=== PATIENT | male | born 1985 | race Caucasian/White ===

== ENCOUNTER 2017-02-08 17:11 | Emergency (ER) | payer BC ==
[2017-02-08] MEDS ORDERED: Ondansetron 4 MG/2 ML SDV IVPUSH ONE (17:30)
[2017-02-08] MEDS ORDERED: Sodium Chloride 0.9% 1,000 ML IV ONE (17:30)
[2017-02-08] MEDS ORDERED: Ketorolac 30 MG/ML SDV IVPUSH ONE (17:31)
[2017-02-08 18:20] LABS: CHLORIDE,CL 105 mmol/L (98-110); SODIUM,NA 141 mmol/L (136-146)
[2017-02-08] MEDS ORDERED: cefTRIAXone 2 GM in Premix Bag 1 BAG IV ONE (18:48)
[2017-02-08] MEDS ORDERED: Morphine 4 MG/ML Syringe IVPUSH ONE (18:49)
--- NOTE | 2017-02-08 19:03 | EDM.PDOC ---
ED HPI GENERAL MEDICAL PROBLEM - General Chief Complaint: General Stated Complaint: LIGHTHEADED/DIZZY/WEAK/VOMITING Time Seen by Provider: 02/08/17 18:40 Source of Information: Reports: Patient History Limitations: Reports: No Limitations - History of Present Illness INITIAL COMMENTS - FREE TEXT/NARRATIVE: History of present illness: [31-year-old male presents with complaints of recent dental work that has now left him with a swollen jaw nausea, vomiting, and fever.] Review of systems: As per history of present illness and below otherwise all systems reviewed and negative. Past medical history: As per history of present illness and as reviewed below otherwise noncontributory. Surgical history: As per history of present illness and as reviewed below otherwise noncontributory. Social history: No reported history of drug or alcohol abuse. Family history: As per history of present illness and as reviewed below otherwise noncontributory. Physical exam: HEENT: Atraumatic, left-sided face slightly swollen more pronounced in the left jaw in the area of 19 pupils reactive, negative for conjunctival pallor or scleral icterus, mucous membranes moist, throat clear, neck supple, nontender, trachea midline. Lungs: Clear to auscultation, breath sounds equal bilaterally, chest nontender. Heart: S1S2, regular, negative for clicks, rubs, or JVD. Abdomen: Soft, nondistended, nontender. Negative for masses or hepatosplenomegaly. Negative for costovertebral tenderness. Pelvis: Stable nontender. Genitourinary: Deferred. Rectal: Deferred. Extremities: Atraumatic, negative for cords or calf pain. Neurovascular unremarkable. Neuro: Awake, alert, oriented. Cranial nerves II through XII unremarkable. Cerebellum unremarkable. Motor and sensory unremarkable throughout. Exam nonfocal. Safe for dental swelling and pain as noted above patient is in obvious discomfort but without any vomiting at present Diagnostics: [CBC, CMP] Therapeutics: [Zofran, Toradol, morphine] Impression: [Dental abscess] Plan: [Current antibiotics, add antiemetics] Definitive disposition and diagnosis as appropriate pending reevaluation and review of above. left jaw Pain Score (Numeric/FACES): 6 - Related Data Allergies Allergy/AdvReac Type Severity Reaction Status Date / Time No Known Allergies Allergy Verified 02/08/17 17:30 Home Meds: Home Meds Penicillin V Potassium 0 mg PO TID 02/08/17 [History] Past Medical History - Past Health History Medical/Surgical History: Denies Medical/Surgical History HEENT History: Reports: None Gastrointestinal History: Reports: None Genitourinary History: Reports: Renal Calculus Social & Family History - Family History Family Medical History: Noncontributory - Tobacco Use Smoking Status *Q: Current Every Day Smoker Years of Tobacco use: 3 Packs/Tins Daily: 1 - Caffeine Use Caffeine Use: Reports: Soda - Recreational Drug Use Recreational Drug Use: No ED ROS GENERAL - Review of Systems Review Of Systems: See Below (See history of present illness) ED EXAM, GENERAL - Physical Exam Exam: See Below (See history of present illness) Course - Vital Signs Last Recorded V/S: Last Vital Signs Temp 36.3 C 02/08/17 17:31 Pulse 68 02/08/17 17:31 Resp 16 02/08/17 17:31 BP 137/80 02/08/17 17:31 Pulse Ox 97 02/08/17 17:31 - Orders/Labs/Meds Orders: Active Orders 24 hr Category Date Time Status cefTRIAXone [Rocephin in Dextrose,Iso-Osm 2 GM/50 ML] 2 Med 02/08/17 18:48 Ordered gm Premix Bag 1 bag IV ONETIME Medication Orders Ceftriaxone Sodium/Dextrose 2 (gm/ Premix) 50 mls @ 100 mls/hr IV ONETIME ONE Stop: 02/08/17 19:17 Labs: Laboratory Tests 02/08/17 02/08/17 Range/Units 17:41 17:41 WBC 8.16 (4.0-11.0) K/uL RBC 4.93 (4.50-5.90) M/uL Hgb 15.2 (13.0-17.0) g/dL Hct 44.3 (38.0-50.0) % MCV 89.9 (80.0-98.0) fL MCH 30.8 (27.0-32.0) pg MCHC 34.3 (31.0-37.0) g/dL RDW Std Deviation 42.5 (28.0-62.0) fl RDW Coeff of Nancy 13 (11.0-15.0) % Plt Count 221 (150-400) K/uL MPV 11.10 (7.40-12.00) fL Neut % (Auto) 53.5 (48.0-80.0) % Lymph % (Auto) 35.4 (16.0-40.0) % Kay % (Auto) 8.8 (0.0-15.0) % Eos % (Auto) 1.8 (0.0-7.0) % Baso % (Auto) 0.5 (0.0-1.5) % Neut # (Auto) 4.4 (1.4-5.7) K/uL Lymph # (Auto) 2.9 H (0.6-2.4) K/uL Kay # (Auto) 0.7 (0.0-0.8) K/uL Eos # (Auto) 0.2 (0.0-0.7) K/uL Baso # (Auto) 0.0 (0.0-0.1) K/uL Nucleated RBC % 0.0 /100WBC Nucleated RBCs # 0 K/uL Sodium 141 (136-146) mmol/L Potassium 3.7 (3.5-5.1) mmol/L Chloride 105 (98-110) mmol/L Carbon Dioxide 27 (21-31) mmol/L BUN 9 (6.0-23.0) mg/dL Creatinine 1.1 (0.6-1.5) mg/dL Est Cr Clr Drug Dosing 102.68 mL/min Estimated GFR (MDRD) > 60.0 ml/min Glucose 99 (60-110) mg/dL Calcium 8.8 (8.8-10.8) mg/dL Total Bilirubin 0.4 (0.1-1.5) mg/dL AST 21 (5-40) IU/L ALT 19 (8-54) IU/L Alkaline Phosphatase 106 (40-150) Total Protein 7.1 (6.0-8.0) g/dL Albumin 4.2 (3.5-5.0) g/dL Globulin 2.9 (2.0-3.5) g/dL Albumin/Globulin Ratio 1.4 (1.3-2.8) Meds: Medications Generic Name Dose Route Start Last Admin Trade Name Freq PRN Reason Stop Dose Admin Ceftriaxone Sodium/Dextrose 2 50 mls @ 100 mls/hr 02/08/17 18:48 gm/ Premix IV 02/08/17 19:17 ONETIME ONE Discontinued Medications Generic Name Dose Route Start Last Admin Trade Name Kaykay PRN Reason Stop Dose Admin Sodium Chloride 1,000 mls @ 999 mls/hr 02/08/17 17:30 02/08/17 17:49 Normal Saline IV 02/08/17 18:30 999 mls/hr STAT ONE Administration Ketorolac Tromethamine 30 mg 02/08/17 17:31 02/08/17 17:53 Toradol IVPUSH 02/08/17 17:32 30 mg ONETIME ONE Administration Morphine Sulfate 4 mg 02/08/17 18:49 Morphine IVPUSH 02/08/17 18:50 ONETIME ONE Ondansetron HCl 8 mg 02/08/17 17:30 02/08/17 17:51 Zofran IVPUSH 02/08/17 17:31 8 mg ONETIME ONE Administration Departure - Departure Time of Disposition: 19:03 Disposition: Home, Self-Care 01 Condition: Good Clinical Impression: Dental abscess - Discharge Information Forms: ED Department Discharge Additional Instructions: The following information is given to patients seen in the emergency department who are being discharged to home. This information is to outline your options for follow-up care. We provide all patients seen in our emergency department with a follow-up referral. The need for follow-up, as well as the timing and circumstances, are variable depending upon the specifics of your emergency department visit. If you don't have a primary care physician on staff, we will provide you with a referral. We always advise you to contact your personal physician following an emergency department visit to inform them of the circumstance of the visit and for follow-up with them and/or the need for any referrals to a consulting specialist. The emergency department will also refer you to a specialist when appropriate. This referral assures that you have the opportunity for follow-up care with a specialist. All of these measure are taken in an effort to provide you with optimal care, which includes your follow-up. Under all circumstances we always encourage you to contact your private physician who remains a resource for coordinating your care. When calling for follow-up care, please make the office aware that this follow-up is from your recent emergency room visit. If for any reason you are refused follow-up, please contact the [facility] Emergency Department at and asked to speak to the emergency department charge nurse. Take medication as directed Follow-up with dentist KENYETTA Return to ER as needed as discussed - My Orders Last 24 Hours: My Active Orders 02/08/17 18:48 cefTRIAXone [Rocephin in Dextrose,Iso-Osm 2 GM/50 ML] 2 gm Premix Bag 1 bag IV ONETIME - Assessment/Plan Last 24 Hours: My Active Orders 02/08/17 18:48 cefTRIAXone [Rocephin in Dextrose,Iso-Osm 2 GM/50 ML] 2 gm Premix Bag 1 bag IV ONETIME
[2017-02-08 22:09] VITALS: BP 127/78
== END 2017-02-08 19:41 | disposition home or self-care (01) ==
LOC: MW.ED 17:11
DX: K04.7 Periapical abscess without sinus (principal); F17.210 Nicotine dependence, cigarettes, uncomplicated; Z87.442 Personal history of urinary calculi
CPT/HCPCS: 80053; 85025; 96361; 96365; 96375; 99284; J0696; J1885; J2270; J2405; J7040; 99283

== ENCOUNTER 2017-06-01 09:42 | Emergency (ER) | payer BC ==
[2017-06-01] MEDS ORDERED: Ketorolac 60 MG/2 ML SDV IM ONE (09:57)
--- NOTE | 2017-06-01 09:57 | EDM.PDOC ---
ED HPI GENERAL MEDICAL PROBLEM - General Chief Complaint: Chest Pain Stated Complaint: CHEST PAIN FROM FALL Time Seen by Provider: 06/01/17 09:51 - History of Present Illness INITIAL COMMENTS - FREE TEXT/NARRATIVE: HISTORY AND PHYSICAL: History of present illness: The patient is a 31-year-old healthy male who presents with complaints of left anterior chest wall pain in the rib area after he sustained a fall 3 days ago. Patient says that on Tuesday he tripped over some laundry and impacted his left anterior chest wall and had immediate pain but did not pass out or black out. Since that time he has had persistent pain but it seems to got worse today. He' s had no abdominal pain and only feels short of breath because of the discomfort. He's not had any other chest pain head or neck pain and is not taking anything for pain. Review of systems: As per history of present illness and below otherwise all systems reviewed and negative. Past medical history: As per history of present illness and as reviewed below otherwise noncontributory. Surgical history: As per history of present illness and as reviewed below otherwise noncontributory. Social history: No reported history of drug or alcohol abuse. Family history: As per history of present illness and as reviewed below otherwise noncontributory. Physical exam: Gen.: Well-developed well-nourished man who is nontoxic and speaking clearly and easily in the ED without breathlessness. Vital signs of the note by me HEENT: Atraumatic, normocephalic, there is no evidence of any facial swelling or defects negative for conjunctival pallor or scleral icterus, mucous membranes moist, throat clear, neck supple, nontender, trachea midline. Her are no midline step-offs tenderness defects of the cervical spine Lungs: Clear to auscultation, breath sounds equal bilaterally, chest wall anterior left with reproducible tenderness at the middle and lower rib cage without crepitus deformities ecchymosis or erythema. Heart: S1S2, regular rate and rhythm no overt murmurs. Abdomen: Soft, nondistended, nontender. More particularly there is no left upper quadrant tenderness rebound or guarding and bowel sounds are normoactive Pelvis: Stable nontender. Genitourinary: Deferred. Rectal: Deferred. Extremities: Atraumatic, negative for cords or calf pain. Neurovascular unremarkable. Neuro: Awake, alert, oriented. Cranial nerves II through XII unremarkable. Cerebellum unremarkable. Motor and sensory unremarkable throughout. Exam nonfocal. Diagnostics: Left ribs with chest x-ray Therapeutics: Toradol Impression: Left chest wall contusion status post fall Definitive disposition and diagnosis as appropriate pending reevaluation and review of above. left chest Pain Score (Numeric/FACES): 7 - Related Data Allergies Allergy/AdvReac Type Severity Reaction Status Date / Time No Known Allergies Allergy Verified 06/01/17 09:58 Home Meds: Home Meds . [No Known Home Meds] 06/01/17 [History] Past Medical History - Past Health History Medical/Surgical History: Denies Medical/Surgical History HEENT History: Reports: None Gastrointestinal History: Reports: None Genitourinary History: Reports: Renal Calculus Social & Family History - Family History Family Medical History: Noncontributory - Tobacco Use Smoking Status *Q: Current Every Day Smoker Years of Tobacco use: 3 Packs/Tins Daily: 1 - Caffeine Use Caffeine Use: Reports: Soda - Recreational Drug Use Recreational Drug Use: No ED ROS GENERAL - Review of Systems Review Of Systems: ROS reveals no pertinent complaints other than HPI. ED EXAM, GENERAL - Physical Exam Exam: See Below (See dictation) Course - Vital Signs Last Recorded V/S: Last Vital Signs Temp 36.3 C 06/01/17 09:42 Pulse 89 06/01/17 09:42 Resp 18 06/01/17 09:42 BP 129/77 06/01/17 09:42 Pulse Ox 96 06/01/17 09:42 - Orders/Labs/Meds Meds: Medications Discontinued Medications Generic Name Dose Route Start Last Admin Trade Name Kaykay PRN Reason Stop Dose Admin Ketorolac Tromethamine 60 mg 06/01/17 09:57 06/01/17 10:14 Toradol IM 06/01/17 09:58 60 mg ONETIME ONE Administration Departure - Departure Time of Disposition: 10:29 Disposition: Home, Self-Care 01 Condition: Good Clinical Impression: Contusion of left chest wall Qualifiers: Encounter type: initial encounter Qualified Code(s): S20.212A - Contusion of left front wall of thorax, initial encounter Fall Qualifiers: Encounter type: initial encounter Qualified Code(s): W19.XXXA - Unspecified fall, initial encounter - Discharge Information Referrals: PCP,None [Primary Care Provider] - Forms: ED Department Discharge Additional Instructions: The following information is given to patients seen in the emergency department who are being discharged to home. This information is to outline your options for follow-up care. We provide all patients seen in our emergency department with a follow-up referral. The need for follow-up, as well as the timing and circumstances, are variable depending upon the specifics of your emergency department visit. If you don't have a primary care physician on staff, we will provide you with a referral. We always advise you to contact your personal physician following an emergency department visit to inform them of the circumstance of the visit and for follow-up with them and/or the need for any referrals to a consulting specialist. The emergency department will also refer you to a specialist when appropriate. This referral assures that you have the opportunity for followup care with a specialist. All of these measure are taken in an effort to provide you with optimal care, which includes your followup. Under all circumstances we always encourage you to contact your private physician who remains a resource for coordinating your care. When calling for followup care, please make the office aware that this follow-up is from your recent emergency room visit. If for any reason you are refused follow-up, please contact the [facility] emergency department at and ask to speak to the emergency department charge nurse. [facility] Primary care- Internal Medicine and Family [address] [address] Plan ice to areas of discomfort or pain and swelling and use [id number] Tylenol or ibuprofen during the day. Please use the [facility] only at sleep times. These call and follow-up with one of our clinic providers for reevaluation and further care and return to the ER as needed and as discussed.
--- NOTE | 2017-06-01 10:26 | CR ---
EXAMINATION: PA chest and left ribs HISTORY: Fall. FINDINGS: The trachea is midline. The cardiomediastinal silhouette is within normal limits. No pulmonary infilt rates, effusions or pneumothorax. Osseous structures appear unremarkable. No displaced rib fracture identified. IMPRESSION: No acute cardiopulmonary process.
[2017-06-01 10:44] VITALS: BP 120/70
== END 2017-06-01 10:40 | disposition home or self-care (01) ==
LOC: MW.ED 09:42
DX: S20.212A Contusion of left front wall of thorax, initial encounter (principal); F17.210 Nicotine dependence, cigarettes, uncomplicated; Z87.442 Personal history of urinary calculi; W01.0XXA Fall on same level from slipping, tripping and stumbling without subsequent striking against object, initial encounter
CPT/HCPCS: 71101; 96372; 99283; J1885

== ENCOUNTER 2017-08-27 18:38 | Emergency (ER) | payer BC ==
[2017-08-27 18:48] VITALS: BP 141/90
--- NOTE | 2017-08-27 19:11 | EDM.PDOC ---
ED HPI GENERAL MEDICAL PROBLEM - General Chief Complaint: Lower Extremity Injury/Pain Stated Complaint: PAIN/SWOLLEN FEET Time Seen by Provider: 08/27/17 19:06 Source of Information: Reports: Patient History Limitations: Reports: No Limitations - History of Present Illness INITIAL COMMENTS - FREE TEXT/NARRATIVE: History of present illness: [31-year-old male comes in complaining of bilateral foot pain. Patient indicates that he unwilling we exposed himself to frostbite. Patient indicates while his feet are visually improved from the prior 48 hours they're now significantly poor more painful.] Review of systems: As per history of present illness and below otherwise all systems reviewed and negative. Past medical history: As per history of present illness and as reviewed below otherwise noncontributory. Surgical history: As per history of present illness and as reviewed below otherwise noncontributory. Social history: No reported history of drug or alcohol abuse. Family history: As per history of present illness and as reviewed below otherwise noncontributory. Physical exam: HEENT: Atraumatic, normocephalic, pupils reactive, negative for conjunctival pallor or scleral icterus, mucous membranes moist, throat clear, neck supple, nontender, trachea midline. Lungs: Clear to auscultation, breath sounds equal bilaterally, chest nontender. Heart: S1S2, regular, negative for clicks, rubs, or JVD. Abdomen: Soft, nondistended, nontender. Negative for masses or hepatosplenomegaly. Negative for costovertebral tenderness. Pelvis: Stable nontender. Genitourinary: Deferred. Rectal: Deferred. Extremities: Atraumatic, negative for cords or calf pain. Neurovascular unremarkable. Neuro: Awake, alert, oriented. Cranial nerves II through XII unremarkable. Cerebellum unremarkable. Motor and sensory unremarkable throughout. Exam nonfocal. Bilateral plantar aspect of both feet with some nonblanching skin. Consistent with either a low-grade frostbite and or callus formation Diagnostics: [] Therapeutics: [] Impression: [Neuropathic foot pain] Plan: [Gabapentin follow-up with primary care] Definitive disposition and diagnosis as appropriate pending reevaluation and review of above. Bilateral Feet Pain Score (Numeric/FACES): 5 - Related Data Allergies Allergy/AdvReac Type Severity Reaction Status Date / Time shellfish derived Allergy Anaphylactic Verified 08/27/17 18:45 Shock Home Meds: Home Meds . [No Known Home Meds] 06/01/17 [History] Past Medical History - Past Health History Medical/Surgical History: Denies Medical/Surgical History HEENT History: Reports: None Gastrointestinal History: Reports: None Genitourinary History: Reports: Renal Calculus Social & Family History - Family History Family Medical History: Noncontributory - Tobacco Use Smoking Status *Q: Current Every Day Smoker Years of Tobacco use: 1 Packs/Tins Daily: 0.2 - Caffeine Use Caffeine Use: Reports: Energy Drinks, Soda, Tea - Recreational Drug Use Recreational Drug Use: No Review of Systems - Review of Systems Review Of Systems: See Below (See history of present illness) ED EXAM, GENERAL - Physical Exam Exam: See Below (See history of present illness) Course - Vital Signs Last Recorded V/S: Last Vital Signs Temp 36.7 C 08/27/17 18:46 Pulse 89 08/27/17 18:46 Resp 16 08/27/17 18:46 BP 141/90 H 08/27/17 18:46 Pulse Ox 97 08/27/17 18:46 Departure - Departure Time of Disposition: 19:08 Disposition: Home, Self-Care 01 Condition: Good Clinical Impression: Neuropathic pain - Discharge Information Referrals: PCP,None [Primary Care Provider] - Additional Instructions: The following information is given to patients seen in the emergency department who are being discharged to home. This information is to outline your options for follow-up care. We provide all patients seen in our emergency department with a follow-up referral. The need for follow-up, as well as the timing and circumstances, are variable depending upon the specifics of your emergency department visit. If you don't have a primary care physician on staff, we will provide you with a referral. We always advise you to contact your personal physician following an emergency department visit to inform them of the circumstance of the visit and for follow-up with them and/or the need for any referrals to a consulting specialist. The emergency department will also refer you to a specialist when appropriate. This referral assures that you have the opportunity for follow-up care with a specialist. All of these measure are taken in an effort to provide you with optimal care, which includes your follow-up. Under all circumstances we always encourage you to contact your private physician who remains a resource for coordinating your care. When calling for follow-up care, please make the office aware that this follow-up is from your recent emergency room visit. If for any reason you are refused follow-up, please contact the [facility] Emergency Department at and asked to speak to the emergency department charge nurse. Observe your feet for any potential early signs of infection You're being giving a pain medicine that is specifically for nerve pain which is consistent with any burning type injury be at from cold and/or chemicals Follow up with your primary care provider in 3-5 days Return to ED as needed as discussed
== END 2017-08-27 19:33 | disposition home or self-care (01) ==
LOC: MW.ED 18:38
DX: M79.2 Neuralgia and neuritis, unspecified (principal); F17.210 Nicotine dependence, cigarettes, uncomplicated; Z91.013 Allergy to seafood
CPT/HCPCS: 99283

== ENCOUNTER 2017-12-07 12:04 | Emergency (ER) | payer BC ==
[2017-12-07 12:37] VITALS: BP 125/77
--- NOTE | 2017-12-07 12:40 | EDM.PDOC ---
ED HPI GENERAL MEDICAL PROBLEM - General Chief Complaint: Abdominal Pain Stated Complaint: ABDOMINAL PAIN Time Seen by Provider: 12/07/17 12:05 Source of Information: Reports: Patient History Limitations: Reports: No Limitations - History of Present Illness INITIAL COMMENTS - FREE TEXT/NARRATIVE: HISTORY AND PHYSICAL: History of present illness: Patient is a 32-year-old male who presents to the emergency room today with complaints of groin and testicular pain for several days. He states that he has had some difficulty starting his stream and has some right flank discomfort as well. He denies any fever, chills or chest pain or shortness of breath. He denies any abdominal pain, nausea, vomiting, diarrhea/constipation. Denies any penile discharge or lesions. Denies any STI concerns at this time; reports he is in monogamous relationship. Review of systems: As per history of present illness and below otherwise all systems reviewed and negative. Past medical history: As per history of present illness and as reviewed below otherwise noncontributory. Surgical history: As per history of present illness and as reviewed below otherwise noncontributory. Social history: No reported history of drug or alcohol abuse. Family history: As per history of present illness and as reviewed below otherwise noncontributory. Physical exam: General: Well-developed and well-nourished 32-year-old male. Alert and oriented. Nontoxic appearing and in no acute distress. HEENT: Atraumatic, normocephalic, pupils equal and reactive bilaterally, negative for conjunctival pallor or scleral icterus, mucous membranes moist, throat clear, neck supple, nontender, trachea midline. No drooling or trismus noted. No meningeal signs Lungs: Clear to auscultation, breath sounds equal bilaterally, chest nontender. Heart: S1S2, regular rate and rhythm without overt murmur Abdomen: Soft, nondistended, nontender. Negative for masses or hepatosplenomegaly. Negative for costovertebral tenderness. Pelvis: Stable. Tenderness to bilateral groin area. Genitourinary: This was done with a gauge maker apprentice at the bedside. No testicular erythema or swelling noted. He does have tenderness to palpation of the testes bilateral. No inguinal hernias appreciated. Normal external genitalia. Rectal: Deferred. Skin: Intact, warm, dry. No lesions or rashes noted. Extremities: Atraumatic, negative for cords or calf pain. Neurovascular unremarkable. Neuro: Awake, alert, oriented. Cranial nerves II through XII unremarkable. Cerebellum unremarkable. Motor and sensory unremarkable throughout. Exam nonfocal. Notes: Testicular exam was done with a chaparone at the bedside. Patient is very tender with palpation of the scrotum. Please see physical assessment. We'll get an ultrasound at this time. Patient states he is very uncomfortable will give Dilaudid IM. He has a ride home. Sound is unremarkable. Labs are within normal limits. We will do a CT of the abdomen and pelvis and add a gonorrhea/media to his urine. Shows no punctate nonobstructive kidney stone. This should not be causing the patient's pain. I will treat with Rocephin and azithromycin while waiting on the STD screening to return. Patient education was given. We'll give him [place] by mouth for home use. Encouraged him to follow-up with urology. Patient voices understanding and is agreeable to plan of care. He denies any further questions at this time. Diagnostics: CBC, CMP, UA, Gonorrhea/chlamydia, testicular ultrasound, CT abdomen and pelvis Therapeutics: Dilaudid IM, Toradol, Rocephin, Azithromycin Impression: Orchitis Plan: 1. Today's lab work, ultrasound and CT were normal. There are some pending labs that we may call you on if needing further follow-up. 2. Please take the medication as prescribed. May cause drowsiness he do not take it will driving her needing to be functioning outside of the house. 3. If you continued to have problems please follow-up with urology, either in [place] or [facility]. 4. Return to the ED as needed and as discussed. Definitive disposition and diagnosis as appropriate pending reevaluation and review of above. Duration: Day(s): Location: Reports: Pelvis Left Flank Pain Score (Numeric/FACES): 8 - Related Data Allergies Allergy/AdvReac Type Severity Reaction Status Date / Time shellfish derived Allergy Anaphylactic Verified 12/07/17 12:37 Shock Past Medical History - Past Health History Medical/Surgical History: Denies Medical/Surgical History HEENT History: Reports: None Gastrointestinal History: Reports: None Genitourinary History: Reports: Renal Calculus - Infectious Disease History Infectious Disease History: Reports: Chicken Pox Social & Family History - Family History Family Medical History: Noncontributory - Tobacco Use Smoking Status *Q: Current Every Day Smoker Years of Tobacco use: 5 Packs/Tins Daily: 1 - Caffeine Use Caffeine Use: Reports: Energy Drinks, Soda - Recreational Drug Use Recreational Drug Use: No ED ROS GENERAL - Review of Systems Review Of Systems: ROS reveals no pertinent complaints other than HPI. ED EXAM, RENAL/ - Physical Exam Exam: See Below (See dictation) Course - Vital Signs Last Recorded V/S: Last Vital Signs Temp 97.4 F 12/07/17 12:34 Pulse 99 12/07/17 12:34 Resp 18 12/07/17 12:34 BP 125/77 12/07/17 12:34 Pulse Ox 96 12/07/17 12:34 - Orders/Labs/Meds Orders: Active Orders 24 hr Category Date Time Status CHLAMYDIA AND GONORRHEA BY TMA Stat Lab 12/07/17 12:48 Received UA W/MICROSCOPIC [URIN] Stat Lab 12/07/17 12:48 Ordered Labs: Laboratory Tests 12/07/17 12/07/17 12/07/17 Range/Units 12:48 12:55 12:55 WBC 10.06 (4.0-11.0) K/uL RBC 5.01 (4.50-5.90) M/uL Hgb 15.7 (13.0-17.0) g/dL Hct 44.9 (38.0-50.0) % MCV 89.6 (80.0-98.0) fL MCH 31.3 (27.0-32.0) pg MCHC 35.0 (31.0-37.0) g/dL RDW Std Deviation 42.7 (28.0-62.0) fl RDW Coeff of Nancy 13 (11.0-15.0) % Plt Count 297 (150-400) K/uL MPV 10.60 (7.40-12.00) fL Neut % (Auto) 55.5 (48.0-80.0) % Lymph % (Auto) 33.3 (16.0-40.0) % Bent % (Auto) 8.3 (0.0-15.0) % Eos % (Auto) 2.4 (0.0-7.0) % Baso % (Auto) 0.5 (0.0-1.5) % Neut # (Auto) 5.6 (1.4-5.7) K/uL Lymph # (Auto) 3.4 H (0.6-2.4) K/uL Bent # (Auto) 0.8 (0.0-0.8) K/uL Eos # (Auto) 0.2 (0.0-0.7) K/uL Baso # (Auto) 0.1 (0.0-0.1) K/uL Nucleated RBC % 0.0 /100WBC Nucleated RBCs # 0 K/uL Sodium 141 (136-148) mmol/L Potassium 4.3 (3.5-5.1) mmol/L Chloride 104 (98-107) mmol/L Carbon Dioxide 28.7 (21.0-32.0) mmol/L BUN 9 (7.0-18.0) mg/dL Creatinine 1.0 (0.8-1.3) mg/dL Est Cr Clr Drug Dosing 111.90 mL/min Estimated GFR (MDRD) > 60.0 ml/min Glucose 91 (74-106) mg/dL Calcium 9.1 (8.5-10.1) mg/dL Total Bilirubin 0.3 (0.2-1.0) mg/dL AST 20 (15-37) IU/L ALT 26 (14-63) IU/L Alkaline Phosphatase 118 H (46-116) U/L Total Protein 7.7 (6.4-8.2) g/dL Albumin 3.7 (3.4-5.0) g/dL Globulin 4.0 H (2.0-3.5) g/dL Albumin/Globulin Ratio 0.9 L (1.3-2.8) Urine Color YELLOW Urine Appearance CLEAR Urine pH 5.5 (5.0-8.0) Ur Specific [place] <= 1.005 (1.001-1.035) Urine Protein NEGATIVE (NEGATIVE) mg/dL Urine Glucose (UA) NEGATIVE (NEGATIVE) mg/dL Urine Ketones NEGATIVE (NEGATIVE) mg/dL Urine Occult Blood NEGATIVE (NEGATIVE) Urine Nitrite NEGATIVE (NEGATIVE) Urine Bilirubin NEGATIVE (NEGATIVE) Urine Urobilinogen 0.2 (<2.0) EU/dL Ur Leukocyte Esterase NEGATIVE (NEGATIVE) Urine RBC 0-2 (0-2/HPF) Urine WBC 0-1 (0-5/HPF) Ur Epithelial Cells RARE (NONE-FEW) Urine Bacteria RARE (NEGATIVE) Meds: Medications Discontinued Medications Generic Name Dose Route Start Last Admin Trade Name Kaykay PRN Reason Stop Dose Admin Azithromycin 1,000 mg 12/07/17 15:39 Zithromax PO 12/07/17 15:40 ONETIME ONE Hydromorphone HCl 1 mg 12/07/17 12:47 12/07/17 12:54 Dilaudid IM 12/07/17 12:48 1 mg ONETIME ONE Administration Ceftriaxone Sodium 500 mg/ 2 mls @ 2 mls/sec 12/07/17 15:39 Lidocaine HCl IM 12/07/17 15:40 ONETIME ONE Ketorolac Tromethamine 30 mg 12/07/17 14:23 Toradol IVPUSH 12/07/17 14:24 ONETIME ONE Departure - Departure Time of Disposition: 15:41 Disposition: Home, Self-Care 01 Clinical Impression: Orchitis - Discharge Information Instructions: Orchitis Referrals: Solitario Zhao MD [Primary Care Provider] - Forms: ED Department Discharge Additional Instructions: The following information is given to patients seen in the emergency department who are being discharged to home. This information is to outline your options for follow-up care. We provide all patients seen in our emergency department with a follow-up referral. The need for follow-up, as well as the timing and circumstances, are variable depending upon the specifics of your emergency department visit. If you don't have a primary care physician on staff, we will provide you with a referral. We always advise you to contact your personal physician following an emergency department visit to inform them of the circumstance of the visit and for follow-up with them and/or the need for any referrals to a consulting specialist. The emergency department will also refer you to a specialist when appropriate. This referral assures that you have the opportunity for follow-up care with a specialist. All of these measure are taken in an effort to provide you with optimal care, which includes your follow-up. Under all circumstances we always encourage you to contact your private physician who remains a resource for coordinating your care. When calling for follow-up care, please make the office aware that this follow-up is from your recent emergency room visit. If for any reason you are refused follow-up, please contact the [facility] Emergency Department at and asked to speak to the emergency department charge nurse. [facility] [address] [place] [id number] [facility] Specialty [facility] - Urology [address] [place] [address] [facility]: Dr Luz Maria Caldera [place] 1. Today's lab work, ultrasound and CT were normal. There are some pending labs that we may call you on if needing further follow-up. 2. Please take the medication as prescribed. May cause drowsiness he do not take it will driving her needing to be functioning outside of the house. 3. If you continued to have problems please follow-up with urology, either in [place] or [facility]. 4. Return to the ED as needed and as discussed. - My Orders Last 24 Hours: My Active Orders 12/07/17 12:48 CHLAMYDIA AND GONORRHEA BY TMA Stat UA W/MICROSCOPIC [URIN] Stat - Assessment/Plan Last 24 Hours: My Active Orders 12/07/17 12:48 CHLAMYDIA AND GONORRHEA BY TMA Stat UA W/MICROSCOPIC [URIN] Stat
[2017-12-07] MEDS: HYDROmorphone 2 MG/ML SDV IM ONE (12:54)
--- NOTE | 2017-12-07 13:28 | US ---
EXAMINATION: Scrotal duplex ultrasound HISTORY: Swelling COMPARISON: None TECHNIQUE: Grayscale, color Doppler, and spectral Doppler imaging obtained. FINDINGS: Both the left and right testicles are normal in size, contour, and echogenicity without a f ocal mass. Normal color and spectral Doppler flow bilaterally. The epididymides these appear normal. No hydrocele or varicocele. No scrotal wall thickening. IMPRESSION: Grossly unremarkable scrotal duplex ultrasound.
[2017-12-07 13:31] LABS: CHLORIDE,CL 104 mmol/L (98-107); SODIUM,NA 141 mmol/L (136-148)
[2017-12-07] MEDS: Ketorolac 30 MG/ML SDV IVPUSH ONE (14:30)
--- NOTE | 2017-12-07 14:56 | CT ---
CT of the abdomen and pelvis without contrast. HISTORY: Pain TECHNIQUE: Axial CT images were obtained of the abdomen and pelvis without contrast. Coronal and sagi ttal reconstructions obtained. Patient refused IV contrast. FINDINGS: The lung bases are clear, no pleural effusion. The liver, spleen, adrenal glands, and pancreas appear unremarkable for noncontrast examination. The gallbladder appears normal. There is no bulky retroperitoneal lymphadenopathy. No abdominal ascites. Punctate nonobstructing stone within the upper pole of the left kidney. The large and small bowel are normal in caliber without evidence of obstruction. The appendix appears normal. There is no bulky pelvic lymphadenopathy. No free fluid. No free air. The urinary bladder ap pears normal. The visualized osseous structures appear normal. IMPRESSION: 1. No acute findings within the abdomen or pelvis. 2. Punctate nonobstructing left renal stone.
[2017-12-07] MEDS: cefTRIAXone 500 MG in Lidocaine 1% 2 ML IM ONE (15:53)
[2017-12-07] MEDS: Azithromycin 250 MG Tab PO ONE (15:53)
== END 2017-12-07 13:58 | disposition home or self-care (01) ==
LOC: MW.ED 12:04
DX: N45.2 Orchitis (principal); F17.210 Nicotine dependence, cigarettes, uncomplicated; Z91.013 Allergy to seafood
CPT/HCPCS: 36415; 74176; 76870; 80053; 81001; 85025; 87491; 87591; 93976; A9270; J0696; J1170; 96372; 99283; 99284-25

== ENCOUNTER 2018-02-16 05:35 | Emergency (ER) | payer BC ==
--- NOTE | 2018-02-16 05:47 | EDM.PDOC ---
ED HPI GENERAL MEDICAL PROBLEM - General Chief Complaint: Headache Stated Complaint: HEADACHE Time Seen by Provider: 02/16/18 05:46 Source of Information: Reports: Patient History Limitations: Reports: No Limitations - History of Present Illness INITIAL COMMENTS - FREE TEXT/NARRATIVE: HISTORY AND PHYSICAL: History of present illness: 32-year-old male presenting to emergency department with chief complaint of headache 2 days. Patient states that 2 days ago he began to have a headache. States that it started bilaterally in the front of his head and has now moved to the back of his head radiating forward. It is bilateral not involving his eyes. Denies any visual changes. States that his pain is 8 out of 10. Did take Tylenol at home throughout the day yesterday as well as today with no alleviation. Has had some associated nausea but no vomiting. Otherwise was feeling well up until this headache. Has no history of migraines or headaches similar to this. Denies any head trauma, fever, or nuchal rigidity. Was feeling his normal self up until this headache. Currently denies any chest pain, palpitations, shortness of breath, syncopal episodes, or focal neurologic deficits. Review of systems: As per history of present illness and below otherwise all systems reviewed and negative. Past medical history: As per history of present illness and as reviewed below otherwise noncontributory. Surgical history: As per history of present illness and as reviewed below otherwise noncontributory. Social history: No reported history of drug or alcohol abuse. Family history: As per history of present illness and as reviewed below otherwise noncontributory. Physical exam: HEENT: Atraumatic, normocephalic, pupils reactive, negative for conjunctival pallor or scleral icterus, mucous membranes moist, throat clear, neck supple, nontender, trachea midline. Lungs: Clear to auscultation, breath sounds equal bilaterally, chest nontender. Heart: S1S2, regular, negative for clicks, rubs, or JVD. Abdomen: Soft, nondistended, nontender. Negative for masses or hepatosplenomegaly. Negative for costovertebral tenderness. Pelvis: Stable nontender. Genitourinary: Deferred. Rectal: Deferred. Extremities: Atraumatic, negative for cords or calf pain. Neurovascular unremarkable. Neuro: Awake, alert, oriented. Cranial nerves II through XII unremarkable. Cerebellum unremarkable. Motor and sensory unremarkable throughout. Exam nonfocal. Diagnostics: [] Therapeutics: Toradol 60 mg IM 1, Phenergan 25 mg IM 1 1 L normal saline IV 1, Benadryl 25 mg IV 1, Reglan 10 mg IV 1 Impression: Tension type headache Nausea without vomiting Plan: Patient initially had some resolution of his headache after Toradol as wells Phenergan however he still was having some nausea as well as headache. He was given 1 L normal saline as well as Benadryl and Reglan which completely resolved headache and he was discharged in good condition with a prescription for Phenergan. Instructed to return to emergency department if any new or worsening symptoms and follow-up with primary care provider. Treatments CIGAR BANDER: Reports: NSAIDS HEAD Pain Score (Numeric/FACES): 8 - Related Data Allergies Allergy/AdvReac Type Severity Reaction Status Date / Time shellfish derived Allergy Anaphylactic Verified 02/16/18 05:37 Shock Home Meds: Home Meds . [No Known Home Meds] 12/07/17 [History] Past Medical History - Past Health History Medical/Surgical History: Denies Medical/Surgical History HEENT History: Reports: None Gastrointestinal History: Reports: None Genitourinary History: Reports: Renal Calculus - Infectious Disease History Infectious Disease History: Reports: Chicken Pox Social & Family History - Family History Family Medical History: Noncontributory - Caffeine Use Caffeine Use: Reports: Energy Drinks, Soda ED ROS GENERAL - Review of Systems Review Of Systems: ROS reveals no pertinent complaints other than HPI. ED EXAM, GENERAL - Physical Exam Exam: See Below Course - Vital Signs Last Recorded V/S: Last Vital Signs Temp 97.9 F 02/16/18 05:35 Pulse 90 02/16/18 07:05 Resp 18 02/16/18 07:05 BP 122/79 02/16/18 07:05 Pulse Ox 97 02/16/18 07:05 - Orders/Labs/Meds Orders: Active Orders 24 hr Category Date Time Status Sodium Chloride 0.9% [Normal Saline] 1,000 ml Med 02/16/18 06:47 Active IV STAT Medication Orders Sodium Chloride (Normal Saline) 1,000 mls @ 999 mls/hr IV STAT ONE Stop: 02/16/18 07:47 Last Admin: 02/16/18 07:03 Dose: 999 mls/hr Meds: Medications Generic Name Dose Route Start Last Admin Trade Name Freq PRN Reason Stop Dose Admin Sodium Chloride 1,000 mls @ 999 mls/hr 02/16/18 06:47 02/16/18 07:03 Normal Saline IV 02/16/18 07:47 999 mls/hr STAT ONE Administration Discontinued Medications Generic Name Dose Route Start Last Admin Trade Name Kaykay PRN Reason Stop Dose Admin Diphenhydramine HCl 25 mg 02/16/18 06:47 02/16/18 07:04 Benadryl IVPUSH 02/16/18 06:48 25 mg ONETIME ONE Administration Ketorolac Tromethamine 60 mg 02/16/18 05:50 02/16/18 06:01 Toradol IM 02/16/18 05:51 60 mg ONETIME ONE Administration Metoclopramide HCl 10 mg 02/16/18 06:47 02/16/18 07:04 Reglan IVPUSH 02/16/18 06:48 10 mg ONETIME ONE Administration Promethazine HCl 25 mg 02/16/18 05:54 02/16/18 06:03 Phenergan IM 02/16/18 05:55 25 mg ONETIME ONE Administration Departure - Departure Time of Disposition: 07:23 Disposition: Home, Self-Care 01 Condition: Good Clinical Impression: Nausea without vomiting Tension type headache Qualifiers: Headache chronicity pattern: acute headache Intractability: not intractable Qualified Code(s): G44.209 - Tension-type headache, unspecified, not intractable - Discharge Information Referrals: PCP,None [Primary Care Provider] - Forms: ED Department Discharge - My Orders Last 24 Hours: My Active Orders 02/16/18 06:47 Sodium Chloride 0.9% [Normal Saline] 1,000 ml IV STAT - Assessment/Plan Last 24 Hours: My Active Orders 02/16/18 06:47 Sodium Chloride 0.9% [Normal Saline] 1,000 ml IV STAT
[2018-02-16] MEDS ORDERED: Ketorolac 60 MG/2 ML SDV IM ONE (05:50)
[2018-02-16] MEDS ORDERED: Promethazine 25 MG/ML SDV IM ONE (05:54)
[2018-02-16] MEDS ORDERED: Metoclopramide 10 MG/2 ML SDV IVPUSH ONE (06:47)
[2018-02-16] MEDS ORDERED: Sodium Chloride 0.9% 1,000 ML IV ONE (06:47)
[2018-02-16] MEDS ORDERED: diphenhydrAMINE 50 MG/ML SDV IVPUSH ONE (06:47)
[2018-02-16 07:43] VITALS: BP 126/78
== END 2018-02-16 07:41 | disposition home or self-care (01) ==
LOC: MW.ED 05:35
DX: G44.209 Tension-type headache, unspecified, not intractable (principal); R11.0 Nausea; Z91.013 Allergy to seafood; Z87.442 Personal history of urinary calculi
CPT/HCPCS: 96361; 96372; 96374; 96375; 99284; J1200; J1885; J2550; J2765; J7040

== ENCOUNTER 2024-12-18 03:11 | Emergency (ER) | payer SELFPAY ==
[2024-12-18] MEDS ORDERED: Sodium Chloride 0.9% 10 ML Syringe FLUSH PRN (03:20)
[2024-12-18] MEDS ORDERED: Sodium Chloride 0.9% 2.5 ML Syringe FLUSH PRN (03:20)
[2024-12-18] MEDS: Aspirin 81 MG Tab.Chew PO ONE (03:28)
[2024-12-18] MEDS: Nitroglycerin 2% Oint 1 GM UD Packet TOP ONE (03:28)
[2024-12-18 03:32] LABS: BASOPHILS ABSOLUTE AUTO 0.05 K/uL (0.00-0.20); BASOPHILS PERCENT AUTO 0.5 % (0.0-1.0); EOSINOPHILS ABSOLUTE AUTO 0.22 K/uL (0.00-0.45); EOSINOPHILS PERCENT AUTO 2.3 % (0.0-6.0); HEMOGLOBIN 17.3 g/dL (14.0-18.0); IMMATURE GRAN ABSOLUTE AUTO 0.02 K/uL (0.00-0.05); IMMATURE GRAN PERCENT AUTO 0.2 % (0.0-0.4); LYMPHOCYTES ABSOLUTE AUTO 3.24 K/uL (1.00-4.80); LYMPHOCYTES PERCENT AUTO 33.2 % (24.0-44.0); MEAN CORPUSCULAR HEMOGLOBIN 31.2 pg (28.0-32.0); MEAN CORPUSCULAR HGB CONC 33.9 g/dL (32.0-36.0); MEAN CORPUSCULAR VOLUME 91.9 fL (83.0-99.0); MEAN PLATELET VOLUME 10.3 fL (9.4-12.4); MONOCYTES ABSOLUTE AUTO 1.27 K/uL (0.00-0.80); NEUTROPHILS ABSOLUTE AUTO 4.95 K/uL (1.80-7.70); NEUTROPHILS PERCENT AUTO 50.8 % (41.0-71.0); PLATELET COUNT,PLT 274 K/uL (150-400); RED BLOOD CELL COUNT 5.55 M/uL (4.52-5.90); WHITE BLOOD CELL COUNT,WBC 9.75 K/uL (3.9-11.3)
[2024-12-18 04:12] LABS: CALCIUM 8.6 mg/dL (8.5-10.1); CARBON DIOXIDE,CO2 31.2 mmol/L (21.0-32.0); CREATININE 1.3 mg/dL (0.8-1.3); EST CRCL DRUG DOSING (CG) 77.99 mL/min
[2024-12-18] MEDS: Morphine 4 MG/ML Syringe IVPUSH ONE (04:39)
[2024-12-18 07:28] VITALS: BP 116/72; PULSE 76
== END 2024-12-18 07:28 | disposition home or self-care (01) ==
LOC: MW.ED 03:11
DX: R07.9 Chest pain, unspecified (principal); I25.2 Old myocardial infarction; F17.210 Nicotine dependence, cigarettes, uncomplicated; Z91.013 Allergy to seafood
CPT/HCPCS: 36415; 71045; 80048; 80061; 83880; 84484; 85025; 85379; 87428; 93005; 96374; 99285; A9270; J2270; 93010; 99284